=== PATIENT | male | born 1965 | race Caucasian/White ===

== ENCOUNTER 2019-08-29 07:01 | Day surgery (SDC) | payer MEDICAID, SELFPAY ==
[2019-08-29] VITALS (7 sets, daily range): BP systolic 127–147; BP diastolic 64–96; PULSE 78–108; RESP 16–20; TEMP 36.9–37.2; O2SAT 93–100; BMI 28.4
--- NOTE | 2019-08-29 07:06 | EKG12_ITS ---
Test Reason : PRE OP Blood Pressure : / mmHG Vent. Rate : 075 BPM Atrial Rate : 075 BPM P-R Int : 184 ms QRS Dur : 102 ms QT Int : 392 ms P-R-T Axes : 041 008 039 degrees QTc Int : 437 ms Normal sinus rhythm Normal ECG No previous ECGs available Confirmed by DOUGLAS CACERES ([id number]), metropolitan editor WILDER SUAREZ ([id number]) on 08/31/2019 1:26:12 PM Referred By: Taras Guzmán Confirmed By:DOUGLAS CACERES
[2019-08-29] MEDS: Lactated Ringers 1,000 ML 100 ML IV (07:49)
[2019-08-29] MEDS: Cefazolin 2 GM in 0.9% Normal Saline 100 ML IV (08:21)
--- NOTE | 2019-08-29 08:29 | RAD_ITS ---
STUDY: X-RAY - RIGHT ELBOW REASON FOR EXAM: Male, 53 years old. Elbow fx repair in OR, pain TECHNIQUE: 7 coned-down view(s) of the elbow. COMPARISON: None. FINDINGS: Intraoperative imaging provided for open reduction internal fixation of the proximal ulnar fracture. RAD/Elbow min 3 Views IMPRESSION: Intraoperative imaging provided for open reduction and internal fixation of the proximal ulnar fracture. Electronically Signed: Fredrick Thornton, at 12:34 EST , Service support ,
--- NOTE | 2019-08-29 08:30 | OP.PCM_ITS ---
Report of Operation Date of Procedure: 08/29/19 Pre-Operative Diagnosis: Right elbow olecranon fracture Post-Operative Diagnosis: Right elbow olecranon fracture Surgery/Procedure Performed:: Open reduction internal fixation right elbow olecranon fracture Description of Surgical Findings:: Well reduced fracture merchandise manager: Júnior Vazquez Type of Anesthesia:: General Anesthesiologist: Quan Polo Special Medications: Ancef Specimen's removed: NONE Estimated Blood Loss (mL): 75 Fluids Replaced: 600 mL crystalloid Description of Procedure: On the day of the procedure patient's right arm was marked in the preoperative area. Patient was brought back to the operating room with her transfer the table in the supine position. Anesthesia assumed control of the C-spine airway and remained controlled throughout the remainder the procedure. After patient was appropriate anesthetized patient was placed in the lateral decubitus position all bony prominences were identified and well-padded beanbag was used to maintain the position and a axillary roll was placed. After patient was adequately positioned right upper extremity was prepped in a sterile fashion while surgeon scrubbed. Upon reentering the room the right upper extremity was draped in standard orthopedic fashion. Incision was marked out. Timeout was called upon good on the side, the site, she to be formed, patient's identity and antibiotics given. Incision was taken down through skin subtenons tissue fat down to fascia. Once identified the fascia we were able to identify the fracture was there was a rent in the fascia. Fracture hematoma was evacuated and there was a large effusion in the joint. At this time both main fracture fragments were identified. The reduction clamp was used to reduce the fracture. Live x-rays used to verify fracture reduction. Once were happy with fracture reduction both anatomically and with live x-ray the 2 hole proximal [employer] [place] plate was selected. We made a small split in the triceps to slide the plate down to bone. Once was completed we provisionally fix the bone to the shaft. We then used a nonlocking screw proximally to bring the plate to the bone. Once this was done provisionally fixed live x-ray was used to verify fracture reduction and plate placement. Once we are happy with both fracture reduction in plate placement we placed 1 more cortical screw distally and 3 more locking screws in the proximal fragment. Live x-ray was once more used to verify fracture reduction. Wound scope seated out normal saline. Wound was closed using #1 Vicryl deep. 2-0 Vicryl and Monocryl for final skin closure with Steri-Strips. Elbow was taken through range of motion no crepitus was noted. Xeroform dressing was placed. Sterile dressing was placed. Posterior splint was placed at 90 degrees. Patient was awakened anesthesia and transferred the PACU recovery. Postoperative plan: Patient will be nonweightbearing for total of 6 weeks. He will come out of his splint at his 2-week postop visit and begin range of motion exercises with therapy. Grafts/Implants Used: [employer]ynthes elbow plate - Complications No intraoperative complications - Admit VTE Documentation VTE Present on Admission: No VTE Mechan Device Prophylaxis: SCD's VTE Pharm Prophylaxis ordered?: No Reason prophylaxis not ordered:: Treatment Not Indicated
[2019-08-29] MEDS: Ketorolac 30 MG/ML Syringe IV (10:15)
[2019-08-29] MEDS: Lactated Ringers 1,000 ML 125 ML IV (10:19)
[2019-08-29] MEDS: oxyCODONE 5 MG Tablet PO (11:27)
[2019-08-29] MEDS: Acetaminophen 500 MG Tablet 1000 MG PO (11:35)
== END 2019-08-29 12:44 | disposition home or self-care (01) ==
LOC: SDC 07:03 → AC 07:05
PROVIDERS: PCP Family Medicine; Referring Provider Specialist; Visit Provider Specialist
PROC: (CPT 24685; principal; 2019-08-29 08:30)
DX: S52.031A Displaced fracture of olecranon process with intraarticular extension of right ulna, initial encounter for closed fracture (principal); W00.0XXA Fall on same level due to ice and snow, initial encounter; Y92.9 Unspecified place or not applicable; Y99.9 Unspecified external cause status; E66.3 Overweight; Z68.30 Body mass index [BMI] 30.0-30.9, adult
CPT/HCPCS: 01830; 24685; 73080; 76000; 93005; C1713; J7120; J2405